=== PATIENT | male | born 1985 | race Caucasian/White ===

== ENCOUNTER 2016-10-06 13:23 | Inpatient (IN) | payer OTHER ==
[2016-10-06 15:28] VITALS: BMI 25.7
--- NOTE | 2016-10-06 17:27 | HP ---
Admission [facility] Chief Complaint: REHAB TX FOR COCAINE AND MARIJUANA DEPENDENCE Allergies/Adverse Reactions: Allergies Allergy/AdvReac Type Severity Reaction Status Date / Time No Known Allergies Allergy Verified 10/06/16 17:03 History of Present Illness: 31 Y/O MALE WITH A HX OF COCAINE AND MARIJUANA DEPENDENCE SEEKING REHAB [place]. FIRST TIME IN [place] HERE. REPORTS DETOX FROM ALCOHOL AND XANAX IN 2010 AND CLAIMS HAS BEEN SOBER FROM THOSE TILL DATE. Exam Limitations: No Limitations - Ebola screening Have you traveled outside of the country in the last 21 days: No Have you had contact with anyone from an Ebola affected area: No Have you been sick,other than usual withdrawal symptoms: No Do you have a fever: No - Review of Systems Constitutional: No Symptoms Reported EENT: reports: No Symptoms Reported Respiratory: reports: No Symptoms reported Cardiac: reports: Chest Tightness ("WHEN I LAY DOWN AT NIGHT") GI: reports: No Symptoms Reported : reports: No Symptoms Reported Musculoskeletal: reports: No Symptoms Reported Integumentary: reports: No Symptoms Reported Neuro: reports: No Symptoms reported Endocrine: reports: No Symptoms Reported Hematology: reports: No Symptoms Reported Psychiatric: reports: Orientated x3, Anxious, Depressed Other Systems: Reviewed and Negative Patient History - Patient Medical History Hx Anemia: No Hx Asthma: No Hx Chronic Obstructive Pulmonary Disease (COPD): No Hx Cardiac Disorders: No Hx Hypertension: No Hx Hypercholesterolemia: No HX Cerebrovascular Accident: No Hx Seizures: No Hx Diabetes: No Hx Gastrointestinal Disorders: No Hx Genitourinary Disorders: No Hx Sexually Transmitted Disorders: No (DENIES) Hx Renal Disease (ESRD): No Hx Thyroid Disease: No Hx Human Immunodeficiency Virus (HIV): No (NEGATIVE HX) Hx Hepatitis C: No Hx Depression: Yes Hx Suicide Attempt: No (DENIES) Hx Schizophrenia: Yes (SCHIZO-AFFECTIVE DISORDER-ON MED) - Patient Surgical History Past Surgical History: Yes Hx Breast Surgery: No Hx Breast Biopsy: No Hx Abdominal Surgery: No Hx Appendectomy: No Hx Cholecystectomy: No Hx Genitourinary Surgery: Yes (KIDNEY SX A BABY FOR HYDRONEPHROSIS ) Hx Orthopedic Surgery: No Other Surgical History: KDNEY SX A BABY FOR HYDRONEPHROSIS. Anesthesia Reaction: No - PPD History Previous Implant?: Yes Documented Results: Negative w/o proof Implanted On Prior [facility] Admission?: No PPD to be Administered?: Yes - Reproductive History Patient is a Female of Child Bearing Age (11 -55 yrs old): No (MALE) Patient : (N/A) - Smoking Cessation Smoking history: Current every day smoker Have you smoked in the past 12 months: Yes Aproximately how many cigarettes per day: 10 Hx Chewing Tobacco Use: No Initiated information on smoking cessation: Yes 'Breaking Loose' booklet given: 10/06/16 - Substance & Tx. History Hx Alcohol Use: Yes (BUT IN REMISSION) Hx Substance Use: Yes (COCAINE/MARIJUANA) Substance Use Type: Cocaine, Marijuana Hx Substance Use Treatment: Yes (LAST [place] AT [facility], [place] DETOX IN 2010) - Substances Abused Cocaine Route: Inhalation Frequency: 3-6 times per week (3-4X/WEEK) Amount used: 1 GM Age of first use: 23 Date of Last Use: 10/04/16 Marijuana/Hashish Route: Smoking Frequency: 3-6 times per week (3-4 DAYS/WEEK) Amount used: 1/2 GM Age of first use: 15 Date of Last Use: 10/05/16 Family Disease History - Family Disease History Family Disease History: Other: Mother (HTN) Admission Physical Exam [facility] - Vital Signs Vital Signs: Vital Signs - 24 hr 10/06/16 15:07 Temperature 97.1 F L Pulse Rate 83 Respiratory 18 Rate Blood Pressure 134/66 - Physical General Appearance: Yes: No Apparent Distress, Nourished, Anxious HEENTM: Yes: EOMI, Normocephalic, GEN, Pharynx Normal Respiratory: Yes: Chest Non-Tender, Lungs Clear, Normal Breath Sounds, No Respiratory Distress Neck: Yes: No masses,lesions,Nodules, Supple, Trachea in good position Breast: Yes: Breast Exam Deferred Cardiology: Yes: Regular Rhythm, Regular Rate, S1, S2 Abdominal: Yes: Normal Bowel Sounds, Non Tender, Flat, Soft Genitourinary: Yes: Other (N/C) Back: Yes: Within Normal Limits Musculoskeletal: Yes: full range of Motion, Gait Steady Extremities: Yes: Normal Range of Motion, Non-Tender Neurological: Yes: mold mechanic II-XII NML intact, Fully Oriented, Alert Integumentary: Yes: Dry, Warm, Other (HEALING SMALL BRUISE TO LEFT KNEE AND WEST DUE TO FALL LAST MONTH PER PT.) Lymphatic: Yes: Within Normal Limits - Diagnostic (1) Cocaine dependence, uncomplicated Current Visit: Yes Status: Chronic (2) Cannabis dependence, uncomplicated Current Visit: Yes Status: Chronic (3) History of schizoaffective disorder Current Visit: Yes Status: Chronic Cleared for Admission S - Detox or Rehab Claeared for Rehab Admission: Yes [facility] Breath Alcohol Content Breath Alcohol Content: 0 Urine Drug Screen - Results Drug Screen Negative: No Urine Drug Screen Results: THC-Marijuana, JOANNA-Cocaine
[2016-10-06] MEDS ORDERED: MENTHOL/PHENOL 1 EACH UD MM PRN (17:42)
[2016-10-06] MEDS ORDERED: ACETAMINOPHEN 325 MG TABLET (FP) PO PRN (17:42)
[2016-10-06] MEDS ORDERED: MAG HYDROX/AL HYDROX/SIMETH 30 ML UNIT-DOSE CUP PO PRN (17:42)
[2016-10-06] MEDS ORDERED: guaiFENesin/D-METHORPHAN HB 10 ML UNIT-DOSE CUPS PO PRN (17:42)
[2016-10-06] MEDS ORDERED: MAGNESIUM HYDROX 2400MG/30ML ORAL SUSPENSION 30 ML CUP PO PRN (17:42)
[2016-10-06] MEDS ORDERED: LOPERAMIDE HCL 2 MG CAPSULE PO PRN (17:42)
[2016-10-06] MEDS ORDERED: P-EPHED 60MG/TRIPROLIDI 2.5MG TABLET PO PRN (17:42)
[2016-10-06] MEDS ORDERED: diphenhydrAMINE HCL 50 MG CAPSULE PO PRN (17:42)
[2016-10-06] MEDS ORDERED: IBUPROFEN 400 MG TABLET (FP) PO PRN (17:42)
[2016-10-06] MEDS ORDERED: MAGNESIUM CITRATE 300 ML BOTTLE PO PRN (17:42)
[2016-10-06] MEDS ORDERED: NICOTINE POLACRILEX 2 MG GUM BUC PRN (17:45)
[2016-10-06] MEDS ORDERED: TUBERCULIN PPD 5 TU/0.1ML VIAL ID ONE (20:38)
[2016-10-06] MEDS: buPROPion HCL 75 MG TABLET PO SCH (20:59)
[2016-10-06] MEDS: OLANZapine 10 MG TABLET PO SCH (20:59)
[2016-10-06] MEDS: NICOTINE 14 MG/24 HOURS TOPICAL PATCH TD SCH (21:00)
[2016-10-06] MEDS: THIAMINE HCL 100 MG TABLET (FP) PO SCH (21:02)
[2016-10-07 10:03] LABS: MCH 29.9 pg (25.7-33.7); MCHC 33.9 g/dl (32.0-35.9); MEAN CELL VOLUME 88.1 fl (80-96); MEAN PLT VOLUME 8.2 fl (7.5-11.1); PLATELET COUNT 253 K/MM3 (134-434); RDW 13.5 % (11.9-15.9); WHITE BLOOD COUNT 6.1 K/mm3 (4.0-10.0)
[2016-10-07] MEDS: PRENATAL VITAMINS W/ FOLIC ACID TABLET (FP) PO SCH (10:27)
[2016-10-07] MEDS: NICOTINE 14 MG/24 HOURS TOPICAL PATCH TD SCH (10:27)
[2016-10-07 10:41] LABS: ALBUMIN 3.4 g/dl (3.4-5.0); ANION GAP 8 (8-16); BILIRUBIN,TOTAL 0.5 mg/dL (0.2-1.0); CO2 29 mmol/L (21-32); SGOT/AST 12 U/L (15-37); SGPT/ALT 28 U/L (12-78)
--- NOTE | 2016-10-07 10:42 | HP ---
Psychiatrist Admission - Data Date of interview: 10/07/16 Admission source: [facility] Identifying data: This is the first 3 W inaptient rehabilitation admission for this 31 year old single male father of 5 month old, employed and domiciled residing with his mother in [place]. Medical History: Patient reports a good physical health. Psychiatric History: The patient is poor historian, he admits one psychiatric hospitalization at [facility] " go". He reprts was diagnosed with depression, anxiety, shcizoaffective and at one point with bipolar disorder. Reports he obtains scripts visiting nearest ERs, he is currently on Wellbutrin 150 mg po hs, Zyprexa 20 mg po hs and Buspar 15 mg po hs. Denies history of suicidal attempts. Physical/Sexual Abuse/Trauma History: Patient denies history of abuse. Additional Comment: patiewnt reports was referred to this treatment by [facility] Vital Signs: Vital Signs - 24 hr 10/06/16 10/07/16 10/07/16 15:07 00:30 03:30 Temperature 97.1 F L Pulse Rate 83 Respiratory 18 18 18 Rate Blood Pressure 134/66 10/07/16 07:16 Temperature 98.3 F Pulse Rate 70 Respiratory 18 Rate Blood Pressure 117/71 Allergies/Adverse Reactions: Allergies Allergy/AdvReac Type Severity Reaction Status Date / Time egg AdvReac Verified 10/06/16 19:15 Fish Containing Products AdvReac Verified 10/06/16 19:14 lentils AdvReac Verified 10/06/16 19:15 fis AdvReac Uncoded 10/06/16 19:14 Date of last physical exam: 10/06/16 Concur with the findings of this exam: Yes - Substance Abuse/Tx History Hx Alcohol Use: No Hx Substance Use: Yes Substance Use Type: Cocaine (started at age of 23, uses every other day), Marijuana (started at age 15, smokes every other day) Hx Substance Use Treatment: Yes ([facility].) - Admission Criteria Previous failed treatment: Yes Poor recovery environment: Yes Comorbidities: Yes Lacks judgement: Yes Mental Status Exam - Mental Status Exam Alert and Oriented to: Time, Place, Person Cognitive Function: Grossly Intact Patient Appearance: Well Groomed Mood: Sad, Anxious Affect: Mood Congruent Patient Behavior: Cooperative Speech Pattern: Appropriate Voice Loudness: Normal Thought Process: Goal Oriented Thought Disorder: Present Hallucinations: Denies Suicidal Ideation: Denies Homicidal Ideation: Denies Insight/Judgement: Fair Sleep: Fair Appetite: Fair Muscle strength/Tone: Normal Gait/Station: Normal Psychiatric Findings - Problem List ([place]ve[place]ts 1, 2,3) (1) Cocaine dependence Current Visit: Yes Status: Acute (2) Cannabis dependence Current Visit: Yes Status: Acute (3) Schizoaffective disorder Current Visit: Yes Status: Acute - Initial Treatment Plan Initial Treatment Plan: will continue his current medications, monitor progress.
[2016-10-07 10:44] LABS: ALK PHOS 56 U/L (45-117); CALCIUM 9.2 mg/dL (8.5-10.1); CREATININE 1.2 mg/dL (0.7-1.3); GLUCOSE,RANDOM 128 mg/dL (74-106); TOT PROT 6.6 g/dl (6.4-8.2)
[2016-10-07 12:40] LABS: HIV 1 & 2 AB NEGATIVE; HIV 1 AGp24 NEGATIVE
[2016-10-07 19:31] LABS: URINE APPEARANCE CLEAR; URINE BILIRUBIN NEGATIVE (NEGATIVE); URINE BLOOD NEGATIVE (NEGATIVE); URINE COLOR YELLOW; URINE GLUCOSE (UA) NEGATIVE (NEGATIVE); URINE KETONE NEGATIVE (NEGATIVE); URINE LEUK ESTERASE NEGATIVE (NEGATIVE); URINE NITRITE NEGATIVE (NEGATIVE); URINE PROTEIN NEGATIVE (NEGATIVE); URINE UROBILINOGEN NEGATIVE mg/dL (0.2-1.0)
[2016-10-07] MEDS: buPROPion HCL 75 MG TABLET PO SCH (21:12)
[2016-10-07] MEDS: OLANZapine 10 MG TABLET PO SCH (21:12)
[2016-10-07] MEDS: THIAMINE HCL 100 MG TABLET (FP) PO SCH (21:14)
[2016-10-08] MEDS: PRENATAL VITAMINS W/ FOLIC ACID TABLET (FP) PO SCH (10:24)
[2016-10-08] MEDS: NICOTINE 14 MG/24 HOURS TOPICAL PATCH TD SCH (10:24)
--- NOTE | 2016-10-08 11:33 | EKG ---
Test Reason : Blood Pressure : / mmHG Vent. Rate : 071 BPM Atrial Rate : 071 BPM P-R Int : 132 ms QRS Dur : 088 ms QT Int : 382 ms P-R-T Axes : 050 018 023 degrees QTc Int : 415 ms NORMAL SINUS RHYTHM POSSIBLE LEFT ATRIAL ENLARGEMENT BORDERLINE ECG NO PREVIOUS ECGS AVAILABLE Confirmed by RICKY WATERMAN, DAWN ([id number]) on 10/08/2016 11:33:15 AM Referred By: Confirmed By:DAWN GARCÍA MD
[2016-10-08] MEDS: THIAMINE HCL 100 MG TABLET (FP) PO SCH (21:10)
[2016-10-08] MEDS: buPROPion HCL 75 MG TABLET PO SCH (21:10)
[2016-10-08] MEDS: OLANZapine 10 MG TABLET PO SCH (21:10)
[2016-10-09] MEDS: NICOTINE 14 MG/24 HOURS TOPICAL PATCH TD SCH (10:22)
[2016-10-09] MEDS: PRENATAL VITAMINS W/ FOLIC ACID TABLET (FP) PO SCH (10:22)
[2016-10-09] MEDS: THIAMINE HCL 100 MG TABLET (FP) PO SCH (21:40)
[2016-10-09] MEDS: buPROPion HCL 75 MG TABLET PO SCH (21:40)
[2016-10-09] MEDS: OLANZapine 10 MG TABLET PO SCH (21:40)
[2016-10-10] MEDS: NICOTINE 14 MG/24 HOURS TOPICAL PATCH TD SCH (10:21)
[2016-10-10] MEDS: PRENATAL VITAMINS W/ FOLIC ACID TABLET (FP) PO SCH (10:22)
[2016-10-10] MEDS: buPROPion HCL 75 MG TABLET PO SCH (21:09)
[2016-10-10] MEDS: OLANZapine 10 MG TABLET PO SCH (21:09)
[2016-10-10] MEDS: THIAMINE HCL 100 MG TABLET (FP) PO SCH (21:10)
[2016-10-11] MEDS: NICOTINE 14 MG/24 HOURS TOPICAL PATCH TD SCH (10:12)
[2016-10-11] MEDS: PRENATAL VITAMINS W/ FOLIC ACID TABLET (FP) PO SCH (10:13)
[2016-10-11] MEDS: OLANZapine 10 MG TABLET PO SCH (21:12)
[2016-10-11] MEDS: buPROPion HCL 75 MG TABLET PO SCH (21:12)
[2016-10-11] MEDS: THIAMINE HCL 100 MG TABLET (FP) PO SCH (21:13)
[2016-10-12] MEDS: NICOTINE 14 MG/24 HOURS TOPICAL PATCH TD SCH (11:40)
[2016-10-12] MEDS: PRENATAL VITAMINS W/ FOLIC ACID TABLET (FP) PO SCH (11:40)
[2016-10-12] MEDS: buPROPion HCL 75 MG TABLET PO SCH (21:06)
[2016-10-12] MEDS: OLANZapine 10 MG TABLET PO SCH (21:06)
[2016-10-12] MEDS: THIAMINE HCL 100 MG TABLET (FP) PO SCH (21:07)
[2016-10-13] MEDS: PRENATAL VITAMINS W/ FOLIC ACID TABLET (FP) PO SCH (10:23)
[2016-10-13] MEDS: NICOTINE 14 MG/24 HOURS TOPICAL PATCH TD SCH (10:23)
[2016-10-13] MEDS ORDERED: diphenhydrAMINE HCL 25 MG CAPSULE (FP) PO PRN (14:23)
[2016-10-13] MEDS ORDERED: COLLOIDAL OATMEAL 1 BAR EACH TP PRN (14:23)
--- NOTE | 2016-10-13 14:27 | PN ---
B[facility] Progress Note Note: allergy with swelling infraorbital area,on aveeno soap,benadryl 25mg po q 6 hrs prn,aveeno soap
[2016-10-13] MEDS ORDERED: diphenhydrAMINE HCL 25 MG CAPSULE (FP) PO ONE (15:00)
[2016-10-13] MEDS: OLANZapine 10 MG TABLET PO SCH (21:12)
[2016-10-13] MEDS: buPROPion HCL 75 MG TABLET PO SCH (21:12)
[2016-10-13] MEDS: HYDROCORTISONE 1% TOPICAL CREAM 30 GM TUBE TP SCH (21:14)
[2016-10-13] MEDS: THIAMINE HCL 100 MG TABLET (FP) PO SCH (21:14)
[2016-10-14] MEDS: NICOTINE 14 MG/24 HOURS TOPICAL PATCH TD SCH (10:27)
[2016-10-14] MEDS: HYDROCORTISONE 1% TOPICAL CREAM 30 GM TUBE TP SCH ×2 (10:27→21:17)
[2016-10-14] MEDS: PRENATAL VITAMINS W/ FOLIC ACID TABLET (FP) PO SCH (10:27)
--- NOTE | 2016-10-14 13:07 | PN ---
[facility] Progress Note Note: more swelling infraorbital area,to astrt prednisone 40 mgs po now and taper off prednisone
[2016-10-14] MEDS ORDERED: predniSONE 20 MG TABLET (UD) PO ONE (14:00)
[2016-10-14] MEDS: OLANZapine 10 MG TABLET PO SCH (21:16)
[2016-10-14] MEDS: buPROPion HCL 75 MG TABLET PO SCH (21:16)
[2016-10-14] MEDS: THIAMINE HCL 100 MG TABLET (FP) PO SCH (21:17)
[2016-10-15] MEDS ORDERED: predniSONE 10 MG TABLET (UD) PO ONE (10:00)
[2016-10-15] MEDS: PRENATAL VITAMINS W/ FOLIC ACID TABLET (FP) PO SCH (10:35)
[2016-10-15] MEDS: HYDROCORTISONE 1% TOPICAL CREAM 30 GM TUBE TP SCH ×2 (10:36→22:29)
[2016-10-15] MEDS: NICOTINE 14 MG/24 HOURS TOPICAL PATCH TD SCH (10:36)
[2016-10-15] MEDS: buPROPion HCL 75 MG TABLET PO SCH (21:03)
[2016-10-15] MEDS: OLANZapine 10 MG TABLET PO SCH (21:03)
[2016-10-15] MEDS: THIAMINE HCL 100 MG TABLET (FP) PO SCH (22:29)
[2016-10-16] MEDS ORDERED: predniSONE 20 MG TABLET (UD) PO ONE (10:00)
[2016-10-16] MEDS: HYDROCORTISONE 1% TOPICAL CREAM 30 GM TUBE TP SCH ×2 (10:48→21:03)
[2016-10-16] MEDS: NICOTINE 14 MG/24 HOURS TOPICAL PATCH TD SCH (10:49)
[2016-10-16] MEDS: PRENATAL VITAMINS W/ FOLIC ACID TABLET (FP) PO SCH (10:49)
[2016-10-16] MEDS: buPROPion HCL 75 MG TABLET PO SCH (21:02)
[2016-10-16] MEDS: OLANZapine 10 MG TABLET PO SCH (21:03)
[2016-10-16] MEDS: THIAMINE HCL 100 MG TABLET (FP) PO SCH (21:03)
[2016-10-17] MEDS ORDERED: predniSONE 10 MG TABLET (UD) PO ONE (10:00)
[2016-10-17] MEDS ORDERED: CYCLOBENZAPRINE HCL 10 MG TABLET (FP) PO ONE (10:00)
[2016-10-17] MEDS: HYDROCORTISONE 1% TOPICAL CREAM 30 GM TUBE TP SCH ×2 (10:21→21:08)
[2016-10-17] MEDS: NICOTINE 14 MG/24 HOURS TOPICAL PATCH TD SCH (10:22)
[2016-10-17] MEDS: PRENATAL VITAMINS W/ FOLIC ACID TABLET (FP) PO SCH (10:22)
[2016-10-17] MEDS: OLANZapine 10 MG TABLET PO SCH (21:07)
[2016-10-17] MEDS: buPROPion HCL 75 MG TABLET PO SCH (21:07)
[2016-10-17] MEDS: THIAMINE HCL 100 MG TABLET (FP) PO SCH (21:08)
[2016-10-18] MEDS ORDERED: predniSONE 5 MG TABLET (UD) PO ONE (10:00)
[2016-10-18] MEDS: HYDROCORTISONE 1% TOPICAL CREAM 30 GM TUBE TP SCH ×2 (10:31→21:04)
[2016-10-18] MEDS: NICOTINE 14 MG/24 HOURS TOPICAL PATCH TD SCH (10:31)
[2016-10-18] MEDS: PRENATAL VITAMINS W/ FOLIC ACID TABLET (FP) PO SCH (10:44)
[2016-10-18] MEDS: buPROPion HCL 75 MG TABLET PO SCH (21:03)
[2016-10-18] MEDS: OLANZapine 10 MG TABLET PO SCH (21:03)
[2016-10-18] MEDS: THIAMINE HCL 100 MG TABLET (FP) PO SCH (21:04)
[2016-10-19] MEDS: HYDROCORTISONE 1% TOPICAL CREAM 30 GM TUBE TP SCH ×2 (10:29→21:52)
[2016-10-19] MEDS: PRENATAL VITAMINS W/ FOLIC ACID TABLET (FP) PO SCH (10:29)
[2016-10-19] MEDS: NICOTINE 14 MG/24 HOURS TOPICAL PATCH TD SCH (10:29)
[2016-10-19] MEDS: OLANZapine 10 MG TABLET PO SCH (21:00)
[2016-10-19] MEDS: buPROPion HCL 75 MG TABLET PO SCH (21:00)
[2016-10-19] MEDS: THIAMINE HCL 100 MG TABLET (FP) PO SCH (21:52)
[2016-10-20 06:58] VITALS: BP 115/78; PULSE 74; TEMP 98.2
[2016-10-20] MEDS: NICOTINE 14 MG/24 HOURS TOPICAL PATCH TD SCH (10:04)
[2016-10-20] MEDS: HYDROCORTISONE 1% TOPICAL CREAM 30 GM TUBE TP SCH ×2 (10:04→21:29)
[2016-10-20] MEDS: PRENATAL VITAMINS W/ FOLIC ACID TABLET (FP) PO SCH (10:05)
[2016-10-20] MEDS: OLANZapine 10 MG TABLET PO SCH (21:28)
[2016-10-20] MEDS: buPROPion HCL 75 MG TABLET PO SCH (21:28)
[2016-10-20] MEDS: THIAMINE HCL 100 MG TABLET (FP) PO SCH (21:29)
--- NOTE | 2016-10-21 09:09 | PN ---
Psychiatric Progress Note Vital Signs: Vital Signs Period Temp Pulse Resp BP Sys/Cordon Pulse Ox Last 24 Hr 18-18 Date of Session: 10/21/16 Chief Complaint:: Discharge Note HPI: Patient addressing Cocaine and Cannabis Dependence comorbid with Nicotine Dependence and Schizoaffective Disorder Current Medications: Active Medications Generic Name Dose Route Start Last Admin Trade Name Freq PRN Reason Stop Dose Admin Acetaminophen 650 mg 10/06/16 17:42 Tylenol - PO Q4H PRN PAIN Al Hydroxide/Mg Hydroxide 30 ml 10/06/16 17:42 Mylanta Oral Suspension - PO Q6H PRN DYSPEPSIA Bupropion HCl 150 mg 10/06/16 22:00 10/20/16 21:28 Wellbutrin - PO 150 mg HS NITA Administration Buspirone HCl 15 mg 10/06/16 22:00 10/20/16 21:28 Buspar - PO 15 mg HS NITA Administration Colloidal Oatmeal 1 applic 10/13/16 14:23 10/13/16 20:13 Aveeno Soap - TP 1 applic DAILY PRN Administration HYGEINE Diphenhydramine HCl 50 mg 10/06/16 17:42 Benadryl - PO HSMR1 PRN INSOMNIA Diphenhydramine HCl 25 mg 10/13/16 14:23 10/14/16 08:08 Benadryl - PO 25 mg Q6H PRN Administration FOR ITCHING Eucalyptus/Menthol/Phenol/Sorbitol 1 each 10/06/16 17:42 Cepastat Lozenge - MM Q4H PRN SORE THROAT Guaifenesin 10 ml 10/06/16 17:42 Robitussin Dm - PO Q6H PRN COUGH Hydrocortisone 1 applic 10/13/16 22:00 10/20/16 21:29 Hytone 1% Cream - TP 1 applic BID NITA Administration Ibuprofen 400 mg 10/06/16 17:42 Motrin - PO Q6H PRN SEVERE PAIN Loperamide HCl 4 mg 10/06/16 17:42 Imodium - PO Q6H PRN DIARRHEA Magnesium Citrate 300 ml 10/06/16 17:42 Citroma - PO Q48H PRN CONSTIPATION Magnesium Hydroxide 30 ml 10/06/16 17:42 Milk Of Magnesia - PO DAILY PRN CONSTIPATION Nicotine 14 mg 10/06/16 17:45 10/20/16 10:04 Nicoderm Patch - TD Not Given DAILY NITA Nicotine Polacrilex 2 mg 10/06/16 17:45 10/09/16 22:19 Nicorette Gum - BUC 2 mg Q2H PRN Administration NICOTINE REPLACEMENT RX Olanzapine 20 mg 10/06/16 22:00 10/20/16 21:28 Zyprexa - PO 20 mg HS NITA Administration Multivit/Folic Acid/Iron 1 tab 10/07/16 10:00 10/20/16 10:05 Vitamins (Sjr) - PO Not Given DAILY NITA Pseudoephedrine/Triprolidine 1 combo 10/06/16 17:42 Actifed - PO TID PRN NASAL CONGESTION Thiamine HCl 100 mg 10/06/16 22:00 10/20/16 21:29 Vitamin B1 - PO Not Given HS NITA Current Side Effect: No Lab tests ordered: Yes Lab tests reviewed: Yes Provider note:: Patient has completed this program today. He has met his treatment goals and will continue to address his issues at [facility] at [address] [place] [address]. Told program writer that from his participation in this program, he has learned the importance of making meetings and having a sponsor. He responded well to Wellbutrin XL 150 mg po daily, Zyprexa 20 mg po HS and Buspar 15 mg po HS. Scripts for 30 days supply of medications are electronically transmitted to [facility] at [address] [place] [id number]. He is stable for discharge today Total face to face time:: 35 Mental Status Exam - Mental Status Exam Alert and Oriented to: Time, Place, Person Cognitive Function: Fair Patient Appearance: Well Groomed Mood: Hopeful, Euthymic Affect: Appropriate Patient Behavior: Cooperative Speech Pattern: Clear Voice Loudness: Normal Thought Process: Intact, Goal Oriented Thought Disorder: Not Present Hallucinations: Denies Suicidal Ideation: Denies Homicidal Ideation: Denies Insight/Judgement: Fair Sleep: Fair Appetite: Fair Muscle strength/Tone: Normal Gait/Station: Normal Psychiatric Treatment Plan - Problem List (1) Cocaine dependence Current Visit: Yes (2) Cannabis dependence Current Visit: Yes (3) Nicotine dependence Current Visit: Yes (4) Schizoaffective disorder Current Visit: Yes Initial treatment plan: Patient is discharged today and referred to [facility] for outpatient treatment
[2016-10-21] MEDS: HYDROCORTISONE 1% TOPICAL CREAM 30 GM TUBE TP SCH (10:40)
[2016-10-21] MEDS: PRENATAL VITAMINS W/ FOLIC ACID TABLET (FP) PO SCH (10:40)
[2016-10-21] MEDS: NICOTINE 14 MG/24 HOURS TOPICAL PATCH TD SCH (10:40)
== END 2016-10-21 10:00 | disposition home or self-care (01) | DRG 772 ==
LOC: YASAS 13:23 → Y3W 17:53
PROVIDERS: ADMIT Psychiatry & Neurology Psychiatry; ATTEND Psychiatry & Neurology Psychiatry
PROC: HZ42ZZZ Group Counseling for Substance Abuse Treatment, Cognitive-Behavioral (ICD-10-PCS; principal; 2016-10-06)
DX: F14.20 Cocaine dependence, uncomplicated (principal); F12.20 Cannabis dependence, uncomplicated; F17.210 Nicotine dependence, cigarettes, uncomplicated; F25.9 Schizoaffective disorder, unspecified; H05.229 Edema of unspecified orbit; T78.40XA Allergy, unspecified, initial encounter; X58.XXXA Exposure to other specified factors, initial encounter
CPT/HCPCS: 36415; 80053; 81003; 85027; 86593; 87389; 93005; 93010